=== PATIENT | male | born 1955 | race African-American/Black ===

== ENCOUNTER 2020-10-01 10:21 | Inpatient (IN) ==
[2020-10-01] MEDS ORDERED: 0.9 % Sodium Chloride 1,000 ML IVC ONE (10:56)
[2020-10-01 11:21] LABS: INR 1.3
[2020-10-01 11:24] LABS: Activated Partial Thrombo Time 27.5 Seconds (26.0-36.0)
[2020-10-01 11:26] LABS: Basophils % 0.1 %; Eosinophils # 0.2 K/mcL (0.0-0.6); Eosinophils % 1.8 %; Hematocrit 33.4 % (37.5-50.1); Hemoglobin 10.4 g/dL (12.9-16.9); Immature Granulocytes % 0.8 % (0-4); Immature Platelets 3.3 % (1.1-6.1); Lymphocytes # 0.6 K/mcL (0.6-4.6); Lymphocytes % 5.9 %; Mean Corpuscular HGB Conc 31.1 g/dL (31.6-35.5); Mean Corpuscular Hemoglobin 25.2 pg (28.0-33.3); Mean Corpuscular Volume 80.9 fL (83.0-100.0); Mean Platelet Volume 10.8 fL (9.4-12.4); Monocytes # 0.6 K/mcL (0.0-1.3); Monocytes % 6.2 %; Neutrophils # 8.6 K/mcL (1.6-8.9); Platelet Count 123 K/mcL (140-400); Red Blood Count 4.13 M/mcL (4.19-5.50); Segmented Neutrophils % 85.2 %; White Blood Count 10.1 K/mcL (4.3-11.1)
[2020-10-01] MEDS ORDERED: Isovue-370 500 ML BOTTLE IVP ONE (11:41)
[2020-10-01 11:44] LABS: Alanine Aminotransferase 43 Units/L (7-52); Albumin 3.4 g/dL (3.5-5.7); Alkaline Phosphatase 50 Units/L (34-104); Aspartate Amino Transferase 45 Units/L (13-39); BUN/Creatinine Ratio 14 (6-26); Bilirubin,Total 1.8 mg/dL (0.3-1.0); Blood Urea Nitrogen 24 mg/dL (8-23); Calcium 8.2 mg/dL (8.6-10.3); Carbon Dioxide 25 mEq/L (23-29); Chloride 100 mEq/L (98-107); Globulin 3.5 g/dL (2.4-3.5); Glucose 248 mg/dL (70-105); Osmolality,Calculated 290 (280-300); Potassium 3.8 mEq/L (3.5-5.1); Sodium 134 mEq/L (136-145); Total Protein 6.9 g/dL (6.4-8.9); Troponin I < 0.03 ng/mL (< 0.04); eGFR For African Americans 47 (> 60); eGFR For Non-African Americans 39 (> 60)
[2020-10-01 12:27] LABS: Adenovirus Not Detected (Not Detect); Bordetella Pertussis Not Detected (Not Detect); Chlamydophila pneumoniae Not Detected (Not Detect); Coronavirus 229E Not Detected (Not Detect); Coronavirus HKU1 Not Detected (Not Detect); Coronavirus NL63 Not Detected (Not Detect); Coronavirus OC43 Not Detected (Not Detect); Human Metapneumovirus Not Detected (Not Detect); Human Rhinovirus/Enterovirus Not Detected (Not Detect); Influenza A Subtype 2009 H1 Not Detected (Not Detect); Influenza B Not Detected (Not Detect); Mycoplasma pneumoniae Not Detected (Not Detect); Parainfluenza Virus 1 Not Detected (Not Detect); Parainfluenza Virus 2 Not Detected (Not Detect); Parainfluenza Virus 3 Not Detected (Not Detect); Parainfluenza Virus 4 Not Detected (Not Detect); Respiratory Syncytial Virus Not Detected (Not Detect); SARS-CoV-2 Not Detected (Not Detect)
[2020-10-01] MEDS ORDERED: cefTRIAXone 1,000 MG in Water for inj. (sterile) 10 ML IVP ONE (14:27)
[2020-10-01] MEDS ORDERED: Azithromycin 500 MG in 0.9 % Sodium Chloride 250 ML IVPB ONE (14:27)
[2020-10-01] MEDS ORDERED: Perflutren Lipid Microsphere 1.3 ML in 0.9 % Sodium Chloride 8.7 ML IVP PRN (15:01)
[2020-10-01] MEDS ORDERED: *HR* Dextrose 50 % in Water (Vial) 50 ML VIAL IVP PRN (15:02)
[2020-10-01] MEDS ORDERED: Dextrose Gel 15 GM/37.5 ML TUBE PO PRN ×2 (15:02)
[2020-10-01] MEDS ORDERED: D5% in Water 1,000 ML IVC PRN (15:02)
[2020-10-01] MEDS ORDERED: cefTRIAXone 1,000 MG in 0.9 % Sodium Chloride Mini Bag 100 ML IVPB ONE (15:05)
[2020-10-01] MEDS ORDERED: Naloxone 0.4 MG/ML INJ IVP PRN (15:11)
[2020-10-01] MEDS ORDERED: 0.9 % Sodium Chloride 1,000 ML IVC SCH (15:15)
[2020-10-01 16:37] LABS: Magnesium 1.7 mg/dL (1.6-2.6)
[2020-10-01] MEDS ORDERED: Acetaminophen 325 MG TABLET PO ONE (17:07)
[2020-10-01] MEDS: Insulin LISPRO 300 UNITS/3 ML VIAL SUBQ SCH ×2 (17:51→20:16)
[2020-10-01] MEDS ORDERED: GRISEOFULVIN 500 MG PO SCH (21:15)
[2020-10-02] MEDS: *HR* Heparin 5,000 UNIT/ML VIAL SQ SCH ×3 (00:38→19:12)
[2020-10-02 01:13] LABS: BUN/Creatinine Ratio 14 (6-26); Blood Urea Nitrogen 20 mg/dL (8-23); Calcium 7.9 mg/dL (8.6-10.3); Carbon Dioxide 25 mEq/L (23-29); Chloride 103 mEq/L (98-107); Chol/HDL Ratio 4.2 (0-4.9); Cholesterol 131 mg/dL (< 200); Ferritin 761 ng/mL (20-250); Glucose 179 mg/dL (70-105); HDL Cholesterol 31 mg/dL (40-59); Iron < 10 mcg/dL (65-175); LDL Cholesterol,Calculated 80 mg/dL (< 100); Osmolality,Calculated 291 (280-300); Potassium 3.6 mEq/L (3.5-5.1); Sodium 137 mEq/L (136-145); Transferrin 151 mg/dL (203-362); Triglycerides 100 mg/dL (< 150); eGFR For African Americans 59 (> 60); eGFR For Non-African Americans 48 (> 60)
[2020-10-02 04:51] LABS: Red Cell Distribution Width 16.1 % (11.5-14.5)
[2020-10-02 04:53] LABS: Hematocrit 31.6 % (37.5-50.1); Hemoglobin 10.1 g/dL (12.9-16.9); Immature Platelets 9.4 % (1.1-6.1); Mean Corpuscular Hemoglobin 26.1 pg (28.0-33.3); Mean Corpuscular Volume 81.7 fL (83.0-100.0); Mean Platelet Volume 10.3 fL (9.4-12.4); Red Blood Count 3.87 M/mcL (4.19-5.50); White Blood Count 9.5 K/mcL (4.3-11.1)
[2020-10-02] MEDS ORDERED: Patient Taking Own Medication 1 EACH PO SCH (09:00)
[2020-10-02] MEDS: Insulin LISPRO 300 UNITS/3 ML VIAL SUBQ SCH ×4 (09:14→21:40)
[2020-10-02] MEDS ORDERED: 0.9 % Sodium Chloride 1,000 ML IVC SCH (14:15)
[2020-10-02] MEDS: Azithromycin 500 MG in 0.9 % Sodium Chloride 250 ML IVPB SCH (14:56)
[2020-10-02] MEDS: Acetaminophen 325 MG TABLET PO PRN ×2 (15:17→19:57)
[2020-10-02] MEDS: cefTRIAXone 2,000 MG in 0.9 % Sodium Chloride Mini Bag 100 ML IVPB SCH (16:50)
[2020-10-02 19:02] LABS: Adenovirus Not Detected (Not Detect); Bordetella Pertussis Not Detected (Not Detect); Chlamydophila pneumoniae Not Detected (Not Detect); Coronavirus 229E Not Detected (Not Detect); Coronavirus HKU1 Not Detected (Not Detect); Coronavirus NL63 Not Detected (Not Detect); Coronavirus OC43 Not Detected (Not Detect); Human Metapneumovirus Not Detected (Not Detect); Human Rhinovirus/Enterovirus Not Detected (Not Detect); Influenza A Subtype 2009 H1 Not Detected (Not Detect); Influenza B Not Detected (Not Detect); Mycoplasma pneumoniae Not Detected (Not Detect); Parainfluenza Virus 1 Not Detected (Not Detect); Parainfluenza Virus 2 Not Detected (Not Detect); Parainfluenza Virus 3 Not Detected (Not Detect); Parainfluenza Virus 4 Not Detected (Not Detect); Respiratory Syncytial Virus Not Detected (Not Detect); SARS-CoV-2 Not Detected (Not Detect)
[2020-10-02] MEDS: GRISEOFULVIN 500 MG PO SCH (21:41)
[2020-10-03] MEDS: Acetaminophen 325 MG TABLET PO PRN ×2 (04:02→16:53)
[2020-10-03] MEDS: Insulin LISPRO 300 UNITS/3 ML VIAL SUBQ SCH ×4 (07:29→21:35)
[2020-10-03 07:35] LABS: Basophils % 0.2 %; Red Cell Distribution Width 16.5 % (11.5-14.5)
[2020-10-03 07:38] LABS: Eosinophils # 0.1 K/mcL (0.0-0.6); Eosinophils % 2.1 %; Hematocrit 30.1 % (37.5-50.1); Hemoglobin 9.5 g/dL (12.9-16.9); Immature Granulocytes % 0.8 % (0-4); Immature Platelets 9.8 % (1.1-6.1); Lymphocytes # 0.5 K/mcL (0.6-4.6); Lymphocytes % 7.7 %; Mean Corpuscular HGB Conc 31.6 g/dL (31.6-35.5); Mean Corpuscular Hemoglobin 24.8 pg (28.0-33.3); Mean Corpuscular Volume 78.6 fL (83.0-100.0); Mean Platelet Volume 10.7 fL (9.4-12.4); Monocytes # 0.2 K/mcL (0.0-1.3); Monocytes % 2.6 %; Neutrophils # 5.3 K/mcL (1.6-8.9); Red Blood Count 3.83 M/mcL (4.19-5.50); Segmented Neutrophils % 86.6 %; White Blood Count 6.1 K/mcL (4.3-11.1)
[2020-10-03 07:47] LABS: Calcium 7.5 mg/dL (8.6-10.3); Potassium 3.5 mEq/L (3.5-5.1)
[2020-10-03 08:04] LABS: Platelet Count 64 K/mcL (140-400)
[2020-10-03 08:34] LABS: Platelet Estimate Decreased (Normal)
[2020-10-03 13:36] LABS: Albumin 2.7 g/dL (3.5-5.7); Albumin/Globulin Ratio 0.9 (1.1-2.2); Bilirubin,Direct 0.5 mg/dL (0.0-0.2); Bilirubin,Indirect 0.6 mg/dL (0.0-1.0); Bilirubin,Total 1.1 mg/dL (0.3-1.0); Globulin 2.9 g/dL (2.4-3.5); Total Protein 5.6 g/dL (6.4-8.9)
[2020-10-03] MEDS: Azithromycin 500 MG in 0.9 % Sodium Chloride 250 ML IVPB SCH (14:21)
[2020-10-03] MEDS: Ipratropium 1 PUFF INHALER IH SCH ×3 (16:15→23:57)
[2020-10-03] MEDS: cefTRIAXone 2,000 MG in 0.9 % Sodium Chloride Mini Bag 100 ML IVPB SCH (16:54)
[2020-10-03] MEDS ORDERED: Acetaminophen IV 1,000 MG/100 ML BAG IVPB ONE (20:07)
[2020-10-03] MEDS: GRISEOFULVIN 500 MG PO SCH (21:36)
[2020-10-04] MEDS: Ipratropium 1 PUFF INHALER IH SCH ×5 (03:53→20:04)
[2020-10-04 05:20] LABS: VBG Ionized Calcium 1.11 mmol/L (1.15-1.35)
[2020-10-04 05:25] LABS: Nucleated Red Blood Cells 0.5 /100 WBC (0); Red Cell Distribution Width 16.7 % (11.5-14.5)
[2020-10-04 05:27] LABS: Eosinophils # 0.3 K/mcL (0.0-0.6); Hematocrit 27.8 % (37.5-50.1); Mean Corpuscular HGB Conc 32.4 g/dL (31.6-35.5); Mean Corpuscular Hemoglobin 24.9 pg (28.0-33.3); Mean Corpuscular Volume 76.8 fL (83.0-100.0); Mean Platelet Volume 10.3 fL (9.4-12.4); Red Blood Count 3.62 M/mcL (4.19-5.50); White Blood Count 4.1 K/mcL (4.3-11.1)
[2020-10-04 05:31] LABS: Platelet Count 70 K/mcL (140-400)
[2020-10-04 05:37] LABS: BUN/Creatinine Ratio 13 (6-26); Blood Urea Nitrogen 16 mg/dL (8-23); Calcium 7.6 mg/dL (8.6-10.3); Carbon Dioxide 24 mEq/L (23-29); Chloride 107 mEq/L (98-107); Glucose 143 mg/dL (70-105); Osmolality,Calculated 288 (280-300); Potassium 3.6 mEq/L (3.5-5.1); Sodium 137 mEq/L (136-145); eGFR For African Americans > 60 (> 60); eGFR For Non-African Americans 57 (> 60)
[2020-10-04 06:06] LABS: Anisocytosis 1+ (Not Present); Hypochromasia Present (Not Present); Lymphocytes # 0.6 K/mcL (0.6-4.6); Microcytosis Present (Not Present); Monocytes # 0.3 K/mcL (0.0-1.3); Poikilocytosis 1+ (Not Present); Smudge Cells Present (Not Present); Target Cells 1+ (Not Present); Toxic Granulation Present (Not Present)
[2020-10-04] MEDS: Insulin LISPRO 300 UNITS/3 ML VIAL SUBQ SCH ×4 (09:07→21:50)
[2020-10-04] MEDS: Acetaminophen 325 MG TABLET PO PRN ×2 (10:23→23:07)
[2020-10-04 10:53] LABS: Magnesium 1.6 mg/dL (1.6-2.6)
[2020-10-04] MEDS ORDERED: Vancomycin 1,250 MG/262.5 ML IV.SOLN IVPB ONE (14:00)
[2020-10-04] MEDS ORDERED: Ringers Solution, Lactated 1,000 ML IVC ONE (15:46)
[2020-10-04] MEDS: Azithromycin 500 MG in 0.9 % Sodium Chloride 250 ML IVPB SCH (15:47)
[2020-10-04] MEDS: cefTRIAXone 2,000 MG in 0.9 % Sodium Chloride Mini Bag 100 ML IVPB SCH (18:33)
[2020-10-04] MEDS: GRISEOFULVIN 500 MG PO SCH (18:33)
[2020-10-04] MEDS: Doxycycline 100 MG in 0.9 % Sodium Chloride Mini Bag 100 ML IVPB SCH ×2 (18:33→18:44)
[2020-10-04 23:53] LABS: Bacteria,Urine Few per hpf (None-Few); Bilirubin,Urine Negative (Negative); Blood,Urine Moderate (Negative); Clarity,Urine Turbid (Clear); Color,Urine Yellow (Yellow); Glucose,Urine (UA) Normal (Normal); Ketones,Urine Negative (Negative); Leukocyte Esterase,Urine Negative (Negative); Mucus,Urine Few per lpf (None-Few); Nitrite,Urine Negative (Negative); Protein,Urine 100 mg/dL (Neg-Trace); Specific Gravity,Urine 1.026 (1.010-1.025); Squamous Epithelial Cell,Urine Few per hpf (None-Few); Urobilinogen,Urine Normal (Normal)
[2020-10-05] MEDS: Ipratropium 1 PUFF INHALER IH SCH ×7 (00:01→23:42)
[2020-10-05 04:32] LABS: Basophils % 0.2 %; Eosinophils # 0.5 K/mcL (0.0-0.6); Eosinophils % 10.9 %; Hemoglobin 8.4 g/dL (12.9-16.9); Immature Granulocytes % 1.9 % (0-4); Immature Platelets 4.3 % (1.1-6.1); Lymphocytes # 0.7 K/mcL (0.6-4.6); Lymphocytes % 14.4 %; Mean Corpuscular HGB Conc 32.3 g/dL (31.6-35.5); Mean Corpuscular Hemoglobin 24.9 pg (28.0-33.3); Mean Corpuscular Volume 77.2 fL (83.0-100.0); Mean Platelet Volume 10.5 fL (9.4-12.4); Monocytes # 0.2 K/mcL (0.0-1.3); Monocytes % 4.2 %; Neutrophils # 3.3 K/mcL (1.6-8.9); Nucleated Red Blood Cells 1.3 /100 WBC (0); Red Blood Count 3.37 M/mcL (4.19-5.50); Segmented Neutrophils % 68.4 %; White Blood Count 4.8 K/mcL (4.3-11.1)
[2020-10-05 04:33] LABS: Platelet Count 87 K/mcL (140-400)
[2020-10-05 04:46] LABS: BUN/Creatinine Ratio 12 (6-26); Blood Urea Nitrogen 13 mg/dL (8-23); Calcium 7.7 mg/dL (8.6-10.3); Carbon Dioxide 23 mEq/L (23-29); Chloride 107 mEq/L (98-107); Glucose 184 mg/dL (70-105); Osmolality,Calculated 289 (280-300); Potassium 3.4 mEq/L (3.5-5.1); Sodium 137 mEq/L (136-145); eGFR For African Americans > 60 (> 60); eGFR For Non-African Americans > 60 (> 60)
[2020-10-05 05:03] LABS: Hypochromasia Present (Not Present); Platelet Estimate Decreased (Normal)
[2020-10-05] MEDS: Doxycycline 100 MG in 0.9 % Sodium Chloride Mini Bag 100 ML IVPB SCH ×2 (05:59→17:50)
[2020-10-05] MEDS: *HR* Enoxaparin 40 MG/0.4 ML SYRINGE SQ SCH (06:00)
[2020-10-05] MEDS: Insulin LISPRO 300 UNITS/3 ML VIAL SUBQ SCH ×4 (08:23→20:14)
[2020-10-05] MEDS: Acetaminophen 325 MG TABLET PO PRN ×2 (11:20→20:18)
[2020-10-05] MEDS: Vancomycin 1,250 MG/262.5 ML IV.SOLN IVPB SCH (14:39)
[2020-10-05] MEDS: cefTRIAXone 2,000 MG in 0.9 % Sodium Chloride Mini Bag 100 ML IVPB SCH (16:29)
[2020-10-05] MEDS ORDERED: Isovue-370 500 ML BOTTLE IVP ONE (16:35)
[2020-10-05] MEDS: GRISEOFULVIN 500 MG PO SCH (20:21)
[2020-10-06] MEDS: Ipratropium 1 PUFF INHALER IH SCH ×6 (04:06→23:06)
[2020-10-06 04:46] LABS: Red Cell Distribution Width 17.2 % (11.5-14.5)
[2020-10-06 04:48] LABS: Hematocrit 26.8 % (37.5-50.1); Hemoglobin 8.5 g/dL (12.9-16.9); Immature Platelets 4.2 % (1.1-6.1); Mean Corpuscular HGB Conc 31.7 g/dL (31.6-35.5); Mean Corpuscular Hemoglobin 24.9 pg (28.0-33.3); Mean Corpuscular Volume 78.4 fL (83.0-100.0); Mean Platelet Volume 10.7 fL (9.4-12.4); Red Blood Count 3.42 M/mcL (4.19-5.50); White Blood Count 7.4 K/mcL (4.3-11.1)
[2020-10-06 04:59] LABS: BUN/Creatinine Ratio 13 (6-26); Blood Urea Nitrogen 14 mg/dL (8-23); Calcium 7.9 mg/dL (8.6-10.3); Carbon Dioxide 26 mEq/L (23-29); Chloride 106 mEq/L (98-107); Glucose 120 mg/dL (70-105); Osmolality,Calculated 288 (280-300); Potassium 3.5 mEq/L (3.5-5.1); Sodium 138 mEq/L (136-145); eGFR For African Americans > 60 (> 60); eGFR For Non-African Americans > 60 (> 60)
[2020-10-06] MEDS: Doxycycline 100 MG in 0.9 % Sodium Chloride Mini Bag 100 ML IVPB SCH (05:47)
[2020-10-06] MEDS: *HR* Enoxaparin 40 MG/0.4 ML SYRINGE SQ SCH (05:51)
[2020-10-06 06:18] LABS: Lyme Disease Total Antibody Equivocal (Negative)
[2020-10-06] MEDS: Insulin LISPRO 300 UNITS/3 ML VIAL SUBQ SCH ×4 (07:20→21:26)
[2020-10-06] MEDS: Acetaminophen 325 MG TABLET PO PRN (07:20)
[2020-10-06] MEDS ORDERED: Cefepime HCl 2,000 MG in Water for inj. (sterile) 20 ML IVP SCH (08:00)
[2020-10-06 13:52] LABS: Procalcitonin 2.81 ng/mL (0.00-0.15)
[2020-10-06] MEDS ORDERED: Furosemide 20 MG/2 ML VIAL IVP ONE (14:42)
[2020-10-06] MEDS: Vancomycin 1,250 MG/262.5 ML IV.SOLN IVPB SCH (15:17)
[2020-10-06] MEDS: Piperacillin/Tazobactam 3.375 GM in 0.9 % Sodium Chloride Mini Bag 100 ML IVPB SCH (15:34)
[2020-10-06] MEDS: GRISEOFULVIN 500 MG PO SCH ×2 (21:30→21:43)
[2020-10-06] MEDS: Doxycycline 100 MG CAPSULE PO SCH (21:30)
[2020-10-06] MEDS ORDERED: Acetaminophen 325 MG TABLET PO PRN (23:43)
[2020-10-07] MEDS: Piperacillin/Tazobactam 3.375 GM in 0.9 % Sodium Chloride Mini Bag 100 ML IVPB SCH ×4 (00:13→23:59)
[2020-10-07] MEDS: Ipratropium 1 PUFF INHALER IH SCH ×5 (03:37→19:56)
[2020-10-07] MEDS: *HR* Enoxaparin 40 MG/0.4 ML SYRINGE SQ SCH (06:11)
[2020-10-07 06:55] LABS: Hematocrit 24.8 % (37.5-50.1); Hemoglobin 8.1 g/dL (12.9-16.9); Mean Corpuscular HGB Conc 32.7 g/dL (31.6-35.5); Mean Corpuscular Volume 79.5 fL (83.0-100.0); Mean Platelet Volume 10.9 fL (9.4-12.4); Nucleated Red Blood Cells 1.4 /100 WBC (0); Platelet Count 145 K/mcL (140-400); Red Blood Count 3.12 M/mcL (4.19-5.50); Red Cell Distribution Width 17.7 % (11.5-14.5)
[2020-10-07 06:59] LABS: White Blood Count 11.8 K/mcL (4.3-11.1)
[2020-10-07 07:13] LABS: BUN/Creatinine Ratio 13 (6-26); Blood Urea Nitrogen 15 mg/dL (8-23); Carbon Dioxide 25 mEq/L (23-29); Chloride 106 mEq/L (98-107); Glucose 132 mg/dL (70-105); Osmolality,Calculated 291 (280-300); Potassium 3.2 mEq/L (3.5-5.1); Sodium 139 mEq/L (136-145); eGFR For African Americans > 60 (> 60); eGFR For Non-African Americans > 60 (> 60)
[2020-10-07] MEDS: Insulin LISPRO 300 UNITS/3 ML VIAL SUBQ SCH ×4 (08:37→21:26)
[2020-10-07] MEDS: Doxycycline 100 MG CAPSULE PO SCH ×2 (08:56→21:27)
[2020-10-07] MEDS ORDERED: *HR* Propofol 200 MG/20 ML VIAL IVP ONE (09:58)
[2020-10-07] MEDS ORDERED: *HR* FentaNYL (PF) 100 MCG/2 ML VIAL ONE (09:58)
[2020-10-07] MEDS ORDERED: Lidocaine -MPF 2% 2 ML VIAL ONE (09:59)
[2020-10-07] MEDS ORDERED: Ringers Solution, Lactated 1,000 ML IVC SCH (10:00)
[2020-10-07] MEDS ORDERED: *HR* Rocuronium Bromide 50 MG/5 ML VIAL ONE (10:00)
[2020-10-07] MEDS ORDERED: Lidocaine -MPF 4% 5 ML AMPUL ONE (10:04)
[2020-10-07] MEDS ORDERED: Ondansetron 4 MG/2 ML VIAL ONE (10:15)
[2020-10-07] MEDS ORDERED: Ondansetron 4 MG/2 ML VIAL IVP PRN (10:21)
[2020-10-07] MEDS ORDERED: *HR* OxyCODONE Immed Rel 5 MG TABLET PO PRN (10:21)
[2020-10-07 13:03] LABS: Eosinophils # 0.5 K/mcL (0.0-0.6); Lymphocytes # 0.9 K/mcL (0.6-4.6); Monocytes # 0.5 K/mcL (0.0-1.3); Neutrophils # 9.4 K/mcL (1.6-8.9); Toxic Granulation Present (Not Present)
[2020-10-07 13:04] LABS: Platelet Estimate Normal (Normal)
[2020-10-07 18:19] LABS: Appearance of Body Fluid Clear (Clear)
[2020-10-07 18:20] LABS: Volume of Body Fluid 10 mL
[2020-10-07 19:08] LABS: Appearance of Body Fluid Clear (Clear); Volume of Body Fluid 12 mL
[2020-10-07] MEDS: GRISEOFULVIN 500 MG PO SCH (21:25)
[2020-10-08] MEDS: Ipratropium 1 PUFF INHALER IH SCH ×5 (00:40→15:39)
[2020-10-08] MEDS: *HR* Enoxaparin 40 MG/0.4 ML SYRINGE SQ SCH (06:08)
[2020-10-08 06:36] LABS: BUN/Creatinine Ratio 17 (6-26); Blood Urea Nitrogen 18 mg/dL (8-23); Calcium 8.1 mg/dL (8.6-10.3); Carbon Dioxide 24 mEq/L (23-29); Chloride 108 mEq/L (98-107); Glucose 136 mg/dL (70-105); Osmolality,Calculated 294 (280-300); Potassium 3.8 mEq/L (3.5-5.1); Sodium 140 mEq/L (136-145); eGFR For African Americans > 60 (> 60); eGFR For Non-African Americans > 60 (> 60)
[2020-10-08] MEDS: Insulin LISPRO 300 UNITS/3 ML VIAL SUBQ SCH ×2 (08:42→13:40)
[2020-10-08] MEDS: Piperacillin/Tazobactam 3.375 GM in 0.9 % Sodium Chloride Mini Bag 100 ML IVPB SCH ×2 (08:43→16:39)
[2020-10-08] MEDS: Doxycycline 100 MG CAPSULE PO SCH (08:43)
[2020-10-08 12:28] VITALS: BP 111/66
[2020-10-09 10:23] LABS: Anaplasma phagocytophilum IgG <1:80 (<1:80); Anaplasma phagocytophilum IgM < 1:16 (< 1:16)
[2020-10-09 10:24] LABS: ANA IgG by ELISA DETECTED (None Detected)
[2020-10-09 18:01] LABS: ANA HEp-2 IgG IFA DETECTED (<1:80); Anti Nuclear Ab Pattern SPECKLED
[2020-10-10 08:49] LABS: Influenza A PCR Body Fluid NOT DETECTED; Influenza B PCR Body Fluid NOT DETECTED; RVP Body Fluid Source BAL
[2020-10-10 10:20] LABS: RSV PCR Body Fluid NOT DETECTED
[2020-10-10 10:21] LABS: RSV PCR Body Fluid NOT DETECTED
== END 2020-10-08 18:03 | disposition home or self-care (01) | DRG 871 ==
LOC: 3BNU 10:21 → EMEROOARM 10:21 → SUATTDRO 14:41 → 3BNU 16:07 → SUATTDRO 10-03 14:33
PROVIDERS: ADMIT General Practice; ATTEND Internal Medicine
PROC: ENDOBRF (2020-10-07 19:10)